=== PATIENT | female | born 1945 | race Caucasian/White ===

== ENCOUNTER 2017-12-26 14:31 | Emergency (ER) | payer OTHER, MEDICAID ==
[~2017-12-26] VITALS: Ht 154.9 cm; Wt 60.1 kg
[2017-12-26 14:47] VITALS: Ht 154.9 cm; Wt 60.1 kg
[2017-12-26 16:46] VITALS: BP 138/65
== END 2017-12-26 16:46 | disposition home or self-care (01) ==
LOC: ED 14:31
DX: S01.81XA Laceration without foreign body of other part of head, initial encounter (principal); X58.XXXA Exposure to other specified factors, initial encounter; Y93.89 Activity, other specified; Y92.89 Other specified places as the place of occurrence of the external cause; Y99.8 Other external cause status
CPT/HCPCS: 90715